=== PATIENT | female | born 1950 | race Caucasian/White ===

== ENCOUNTER → 2021-03-04 15:53 | Outpatient (BNVA) | payer MEDICARE, SELFPAY | PROVIDERS: Visit Provider Nurse Practitioner Family | DX: M25.511 Pain in right shoulder (principal); S42.201A Unspecified fracture of upper end of right humerus, initial encounter for closed fracture; X58.XXXA Exposure to other specified factors, initial encounter | CPT/HCPCS: 73030 ==

== ENCOUNTER 2021-03-04 17:33 | Emergency (ER) | payer MEDICARE, SELFPAY ==
[2021-03-04 17:59] VITALS: BP 155/77; PULSE 78; RESP 15; TEMP 36.6; O2SAT 97; BMI 36.3
--- NOTE | 2021-03-04 18:05 | ED_ITS ---
HPI - Extremity Problem General: Chief complaint: Extremity Injury, Upper Stated complaint: R shoulder pain Time Seen by Provider: 03/04/21 18:05 History of Present Illness: HPI Narrative: Patient fell at home today and injured her right upper arm. On exam patient has tenderness and swelling to the right upper arm. Distal pulses are intact. Normal range of motion of the hands and elbow is noted. Patient does have some bruising to her face. Patient rut ed any loss of consciousness. Patient was seen at her primary care who referred her to the ER for further evaluation. Patient does know she has a humerus fracture, as diagnosed by PCP. Review of Systems General: Reports: 10 or more systems reviewed and unremarkable except in HPI and below Musc: Reports: other (Right upper arm injury.) [facility] ED PFSH: Medical History (Updated 03/04/21 @ 18:41 by JUDITH Hodges) Humeral fracture Social History Smoking and tobacco status: never smoked Physical Exam Const: COMMON NORMALS: no acute distress and patient oriented x3 GENERAL APPEARANCE: cooperative HENMT: COMMON NORMALS: normocephalic and Normal external nose present HEAD & SCALP: normocephalic and other (Bruising right forehead.) NOSE: Normal external nose present MOUTH: Normal oral and palatal mucosa present Eye: GENERAL EYE: appearance normal, both eyes and all related structures Neck/C-Spine: COMMON NORMALS: full ROM Chest: COMMONS NORMALS: normal inspection of the chest Resp: COMMON NORMALS: normal respiratory effort EFFORT & INSPECTION: Yes able to speak in complete sentences Cardio: COMMON NORMALS: regular rate and regular rhythm RATE: regular rate RHYTHM: regular rhythm GI: COMMON NORMALS: non-tender : COMMON NORMALS: Yes no CVA tenderness BLADDER/KIDNEY EXAM: Yes no CVA tenderness Back/Pelvis: COMMON NORMALS: no CVA tenderness and thoracic and lumbar spine normal to inspection Extremity: NARRATIVE EXTREMITY EXAM: Tenderness and swelling right upper arm. Neuro: COMMON NORMALS: patient oriented x3 and moves all extremities Psych: COMMON NORMALS: mental status grossly normal and cooperative Skin: COMMON NORMALS: no rashes or lesions noted GENERAL SKIN EXAM: no rashes or lesions noted Course Vital Signs: Vital signs: Vital Signs Temperature 97.9 F 03/04/21 19:22 Pulse Rate 78 03/04/21 17:59 Respiratory Rate 15 03/04/21 19:22 Blood Pressure 155/77 03/04/21 17:59 Pulse Oximetry 97 03/04/21 19:22 MDM - Extremity (Nontraumatic) MDM Narrative: Medical decision making narrative: 70-year-old female comes in today for injury sustained during a fall this morning. Patient had been evaluated at her primary care and was referred to the ER for further evaluation and treatment. On exam patient has tenderness to the right upper arm. Patient also has some bruising to the right forehead. Respirations are even lungs are clear to auscultation. Skin is warm and dry. Differential diagnosis includes but not limited to fracture of the humerus, intracranial bleeding, contusion. X-ray of the humerus noted a comminuted proximal fracture of the right humerus, CT of the head indicated no fractures or intracranial bleeding. Patient was given hydrocodone for pain. Patient will follow up with orthopedics. Case management referral request was placed. Patient reported understanding of care plan and need for follow-up. Discharge Plan Discharge Patient Disposition: Home Clinical Impression: Humeral fracture Qualifiers: Encounter type: initial encounter Humerus Location: proximal Fracture type: closed Fracture morphology: unspecified fracture morphology Laterality: right Qualified Code(s): S42.201A - Unspecified fracture of upper end of right humerus, initial encounter for closed fracture Condition: Stable Prescriptions: New hydrocodone-acetaminophen 5-325 mg tablet 1 tab PO Q6H PRN (Reason: pain) Qty: 20 RF: 0 No Action trazodone 100 mg tablet PO RF: 0 amlodipine 5 mg tablet PO RF: 0 lovastatin 40 mg tablet PO RF: 0 citalopram 40 mg tablet 40 mg PO DAILY RF: 0 buspirone 5 mg tablet PO RF: 0 nystatin 100,000 unit/gram ointment topical RF: 0 Discharge Orders: Discharge ED (Routine); Ordered 03/04/21 Ordered By: Charly Layne Discharge Diet: Usual diet Discharge Activity: Increase activity as tolerated Patient Instructions: Arm Fracture in Adults (ED), Opioid Safety Activity Restrictions/Additional Instructions: use sling for comfort, Use acetaminophen and ibuprofen for pain control. Use hydrocodone for severe pain. Case management will contact you for follow-up with orthopedics office. Most likely it will be Sunday. Use a stool softner when using hydrocodone as it may cause constipation. Follow-up with primary care as needed. Return to ER as needed. Coding Level of Care Code ED Animal Physiologist for Sintia Sebastian
--- NOTE | 2021-03-04 18:08 | XRR_ITS ---
PROCEDURE INFORMATION: Exam: XR Right Humerus Exam date and time: 03/04/2021 6:08 PM Age: 70 years old Clinical indication: Pain; Shoulder; Right; Additional info: Fracture TECHNIQUE: Imaging protocol: XR Right humerus. Views: 2 or more views. COMPARISON: No relevant prior studies available. FINDINGS: Bones/joints: Acute comminuted fracture of the right humeral head. Soft tissues: Normal. XR/[place] [id number] IMPRESSION: Acute comminuted fracture of the right humeral head.
--- NOTE | 2021-03-04 18:09 | CTR_ITS ---
PROCEDURE INFORMATION: Exam: CT Head Without Contrast Exam date and time: 03/04/2021 6:09 PM Age: 70 years old Clinical indication: Injury or trauma; Fall; Blunt trauma (contusions or hematomas); Without loss of consciousness; Patient HX: Fell over a cat hematoma R forehead denies loc; Additional info: Fall, closed head injury TECHNIQUE: Imaging protocol: Computed tomography of the head without contrast. Radiation optimization: All CT scans at this facility use at least one of these dose optimization techniques: automated exposure control; mA and/or kV adjustment per patient size (includes targeted exams where dose is matched to clinical indication); or iterative reconstruction. COMPARISON: No relevant prior studies available. RADIATION DOSE METRICS: Total DLP (mGy-cm): 812.14 FINDINGS: Brain: Normal. No hemorrhage. Unremarkable white matter. No mass effect. Cerebral ventricles: No ventriculomegaly. Paranasal sinuses: Visualized sinuses are unremarkable. No fluid levels. Mastoid air cells: Visualized mastoid air cells are well aerated. Orbital cavity: Bilateral cataract surgery. Bones/joints: Unremarkable. No acute fracture. Soft tissues: Right frontal scalp hematoma. CT/CT head wo con* [id number] IMPRESSION: No acute intracranial abnormality. Radiation Dose CTDIVOL = (mGy): DLP = 812.14 (mGy-cm)
[2021-03-04] MEDS: HYDROcodone-acetaminophen 7.5-325 mg Tablet 1 TAB PO (18:28)
[2021-03-04 19:22] VITALS: RESP 15; TEMP 36.6; O2SAT 97
[2021-03-04] MEDS: ondansetron 4 MG Tablet PO (19:22)
--- NOTE | 2021-03-07 09:46 | DCPLANNER ---
commissions manager had message to schedule a follow up appointment for patient with ortho. commissions manager called the ortho clinic, spoke with Shantih, gave clinic patients information. commissions manager was told that patients information would be printed and reviewed. Clinic will call patient with appointment information.
--- NOTE | 2021-03-09 13:30 | DCPLANNER ---
Patient had a follow up appointment scheduled for 03.08.[address] Rivas at [facility] - patient did attend appointment.
== END 2021-03-04 19:30 | disposition home or self-care (01) ==
PROVIDERS: Emergency Provider Nurse Practitioner Family
DX: S42.201A Unspecified fracture of upper end of right humerus, initial encounter for closed fracture (principal); W19.XXXA Unspecified fall, initial encounter; Y92.009 Unspecified place in unspecified non-institutional (private) residence as the place of occurrence of the external cause; M25.511 Pain in right shoulder; X58.XXXA Exposure to other specified factors, initial encounter
CPT/HCPCS: 29240; 70450; 73030; 73060; 99283; Q0162

== ENCOUNTER → 2021-03-23 10:05 | Outpatient (BNVA) | payer MEDICARE, SELFPAY | PROVIDERS: Visit Provider Orthopaedic Surgery | DX: S42.201A Unspecified fracture of upper end of right humerus, initial encounter for closed fracture (principal); W01.0XXA Fall on same level from slipping, tripping and stumbling without subsequent striking against object, initial encounter | CPT/HCPCS: 73030 ==

== ENCOUNTER 2021-03-29 06:00 | Outpatient (RCR) | payer MEDICARE, SELFPAY | END 2021-04-21 23:59 | disposition home or self-care (01) | LOC: WPT 06:00 | PROVIDERS: Referring Provider Orthopaedic Surgery; Visit Provider Orthopaedic Surgery | DX: M84.311 Stress fracture, right shoulder (principal); X58.XXXD Exposure to other specified factors, subsequent encounter | CPT/HCPCS: 97110; 97112; 97140; 97161 ==

== ENCOUNTER 2021-04-22 06:00 | Outpatient (RCR) | payer MEDICARE, SELFPAY | END 2021-05-22 23:59 | disposition home or self-care (01) | LOC: WPT 06:00 | PROVIDERS: Visit Provider Orthopaedic Surgery | DX: S42.201D Unspecified fracture of upper end of right humerus, subsequent encounter for fracture with routine healing (principal); X58.XXXD Exposure to other specified factors, subsequent encounter | CPT/HCPCS: 97110; 97164 ==

== ENCOUNTER → 2021-04-26 11:10 | Outpatient (BNVA) | payer MEDICARE, SELFPAY | PROVIDERS: Visit Provider Orthopaedic Surgery | DX: S42.201A Unspecified fracture of upper end of right humerus, initial encounter for closed fracture (principal); X58.XXXA Exposure to other specified factors, initial encounter | CPT/HCPCS: 73030 ==